=== PATIENT | female | born 1945 | race Caucasian/White ===

== ENCOUNTER 2017-05-06 21:27 | Emergency (ER) | payer MEDICARE, OTHER ==
[2017-05-06] MEDS ORDERED: NORMAL SALINE 1,000 ML IV ONE (21:50)
[2017-05-06] MEDS ORDERED: ONDANSETRON HCL/PF 2 MG/ML VIAL IV ONE (21:50)
[2017-05-06] MEDS ORDERED: ONDANSETRON HCL/PF 2 MG/ML VIAL ONE (22:06)
[2017-05-06 22:10] LABS: Hematocrit 33.6 % (37.0-47.0); Hemoglobin 11.5 gm/dL (12.5-16.0); Mean Cell Volume 94.6 fl (78-100); Mean Corpuscular Hemoglobin 32.4 pg (27-31); Mean Corpuscular Hgb Conc 34.2 g/dl (32-36); Mean Platelet Volume 9.7 fl (6.0-9.5); Platelet Count 213 K/mm3 (150-450); Red Blood Count 3.55 M/mm3 (4.2-5.4); Red Cell Distribution Width 11.9 % (11.5-14.0); White Blood Count 6.2 K/mm3 (4.0-10.5)
--- NOTE | 2017-05-06 22:10 | ERNOTE ---
<Coty Mccloud - Last Filed: 05/06/17 21:52> Medical Problem HPI - Narrative Date of Service: 05/06/17 - General Chief Complaint: Flu Symptoms Time Seen by Provider: 05/06/17 21:42 Source: patient Exam Limitations: no limitations - Immun/Allergies/Home Medications Immunizations: IMMUNIZATION HX Immunizations Up to Date Yes History of Influenza Vaccine Yes Hx Pneumococcal Vaccination Yes Allergies/Adverse Reactions: Allergies erythromycin base [Erythromycin Base] Allergy (Verified 05/07/17 00:00) oxycodone Allergy (Verified 05/07/17 00:01) Sulfa (Sulfonamide Antibiotics) Allergy (Verified 05/07/17 00:00) amlodipine Adverse Reaction (Verified 05/07/17 00:00) indomethacin Adverse Reaction (Verified 05/07/17 00:00) Home Medications: HOME MEDICATIONS Albuterol Sulfate [Ventolin HFA] 2 puff IH Q4H PRN #1 inhaler 05/03/17 [Last Taken Unknown] Carvedilol [Coreg] 12.5 mg PO BID 05/03/17 [Last Taken Unknown] Diclofenac Sodium [Diclofenac Sodium ER] 100 mg PO BID 05/03/17 [Last Taken Unknown] Fluticasone Propionate [Allergy Relief] 15.8 ml NS DAILY 05/03/17 [Last Taken Unknown] Levofloxacin [Levaquin] 750 mg PO DAILY #7 tablet 05/03/17 [Last Taken Unknown] Losartan/Hydrochlorothiazide [Losartan-Hctz 100-25 mg Tab] 1 each PO DAILY 05/03 [Last Taken Unknown] Omeprazole 40 mg PO DAILY 05/03/17 [Last Taken Unknown] Oseltamivir Phosphate [Tamiflu] 75 mg PO BID #10 cap 05/03/17 [Last Taken Unknown] traMADol HCL [Tramadol HCl] 50 mg PO PRN PRN 05/03/17 [Last Taken Unknown] Codeine Phosphate/Guaifenesin [Guiatuss AC Syrup] 5 ml PO QID PRN #30 ml [Last Taken Unknown] - History of Present History Narrative: Pt. comes in with c/o fever, cough, sinus congestion, chest congestion, malaise , fatigue, increased SOB, nausea and vomiting for 3 days. Timing: getting worse Severity: moderate Modifying Factors - (Improves): Present: other - denies Modifying Factors - (Worsens): Present: eating, movement, other - cold air Review of Systems - Review of Systems Constitutional: Present: no symptoms reported. Absent: fever, chills, weakness , fatigue, malaise EYE: Present: no symptoms reported ENT: Present: nose congestion, nasal drainage Respiratory: Present: shortness of breath, cough Cardiology: Present: no symptoms reported. Absent: chest pain, palpitations, edema Gastrointestinal/Abdominal: Present: no symptoms reported. Absent: nausea, vomiting, diarrhea, abdominal pain Genitourinary: Present: no symptoms reported. Absent: frequency, decreased urinary output Musculoskeletal: Present: no symptoms reported. Absent: back pain, joint pain Skin: Present: no symptoms reported. Absent: rash, change in hair/nails Neurological: Present: no symptoms reported. Absent: headache, dizziness/light- headedness, numbness, tingling All Other Systems: All systems neg except as marked - Patient's Past Medical History Patient History - Medical: GERD Patient History - Cardiac/Respiratory: COPD, Hypertension, Hyperlipidemia Patient History - Cancer: No Hx of Cancer Patient History - Surgical Procedures: Other Patient History - Other: None - Social History Living Situations: alone Psych History: No pertinent hx Smoking Status: Never smoker Have you smoked in the past 12 months: No Alcohol Use: none Drug Use: none - Immunizations Immunizations Up to Date: Yes Hx Pneumococcal Vaccination: Yes History of Influenza Vaccine: Yes Physical Exam - Physical Exam General Appearance: Present: wd/wn, alert, no apparent distress Head Exam: Present: normal inspection, no evidence of injury Eye Exam: Normal inspection: bilateral Ears, Nose, Throat: Present: nasal congestion, normal pharynx, dry mucous membranes. Absent: pharyngeal erythema Neck: Present: normal inspection, nontender, supple, full range of motion. Absent: lymphadenopathy (R), lymphadenopathy (L) Respiratory: Present: no respiratory distress, no accessory muscle use, chest nontender, rhonchi - RUL RLL Cardiovascular/Chest: Present: regular rate, rhythm, no murmur, normal peripheral pulses Gastrointestinal/Abdominal: Present: normal bowel sounds, nontender, nondistended, soft, no organomegaly Back Exam: Present: normal inspection Extremity Exam: Present: normal inspection Neurological Exam: Present: alert, oriented, normal mood/affect, no motor/ sensory deficits Skin Exam: Present: warm/dry, pallor. Absent: skin rash ED Progress - Vital Signs Patient's Vital Signs:: I have reviewed the patient's vital signs. Vital Signs: Vital Signs 05/06/17 21:32 Temperature 98.9 C H Pulse Rate 77 Respiratory 24 H Rate Blood Pressure 156/84 O2 Sat by Pulse 98 Oximetry - Progress/Reassessment Chief Complaint: Flu Symptoms Progress:: Unchanged - Transfer of Care Physician Sign Out: Coty Mccloud Receiving Physician: Luis Baker Pending Results: Labs, X-ray results Expected Disposition: Admit Departure Clinical Impression: Influenza A - Departure Disposition: Home Follow Up Needed Condition: Fair Instructions: Influenza, Adult, [id number] Additional Instructions: Stop the levofloxacin and continue the tamiflu (oseltamivir) until gone. Take the cough medicine for severe cough. See your primary care provider if not improving Referrals: Adele Kraus, HERBERT [Primary Care Provider] - Prescriptions: Codeine Phosphate/Guaifenesin [Guiatuss AC Syrup] 5 ml PO QID PRN #30 ml PRN Reason: Cough <Luis Baker - Last Filed: 05/07/17 03:53> Medical Problem HPI - Immun/Allergies/Home Medications Immunizations: IMMUNIZATION HX Immunizations Up to Date Yes History of Influenza Vaccine Yes Hx Pneumococcal Vaccination Yes ED Progress - Results and Orders Patient's Lab Results:: I have reviewed the patient's lab results. Results and Orders: Laboratory Tests 05/06/17 05/06/17 05/06/17 22:05 22:05 22:05 WBC 6.2 Hgb 11.5 L Hct 33.6 L Plt Count 213 ESR 24 H Sodium 137 Potassium 4.1 Chloride 100 Carbon Dioxide 25.0 BUN 22 Creatinine 1.11 Est GFR (Non-Af Amer) 51 L Random Glucose 109 Lactic Acid, Venous Calcium 8.8 Total Bilirubin 0.4 AST 87 H ALT 161 H Alkaline Phosphatase 111 Troponin I Less than 0.017 C-Reactive Prot, Quant 0.4 B-Natriuretic Peptide 111 Total Protein 7.6 Albumin 3.6 Urine Color Urine Appearance Urine pH Ur Specific [place] Urine Protein Urine Glucose (UA) Urine Ketones Urine Blood Urine Nitrate Urine Bilirubin Urine Urobilinogen Ur Leukocyte Esterase Urine RBC Urine WBC Ur Epithelial Cells Amorphous Sediment Urine Bacteria Urine Culture Comments 05/06/17 05/06/17 22:05 23:25 WBC Hgb Hct Plt Count ESR Sodium Potassium Chloride Carbon Dioxide BUN Creatinine Est GFR (Non-Af Amer) Random Glucose Lactic Acid, Venous 1.6 Calcium Total Bilirubin AST ALT Alkaline Phosphatase Troponin I C-Reactive Prot, Quant B-Natriuretic Peptide Total Protein Albumin Urine Color Yellow Urine Appearance Clear Urine pH 5.5 Ur Specific [place] 1.015 Urine Protein Negative Urine Glucose (UA) Negative Urine Ketones Negative Urine Blood Negative Urine Nitrate Negative Urine Bilirubin Negative Urine Urobilinogen Normal Ur Leukocyte Esterase Negative Urine RBC None seen Urine WBC None seen Ur Epithelial Cells 0-5 Amorphous Sediment Trace Urine Bacteria Trace Urine Culture Comments No culture indicated - Vital Signs Patient's Vital Signs:: I have reviewed the patient's vital signs. Vital Signs: Vital Signs 05/06/17 05/06/17 21:32 22:00 Temperature 98.9 C H 98.9 C H Pulse Rate 77 71 Respiratory 24 H Rate Blood Pressure 156/84 170/80 O2 Sat by Pulse 98 97 Oximetry - X-Ray X-Ray #1 X-Ray: chest Interpretation: Interp. by me X-ray Comments: No infiltrate or effusion - Progress/Reassessment Progress Note-Subjective: 05/07/17 03:39 Pt was continuing to have paroxysmal coughing spells in the ED and was given tessalon perles. Pt continued to cough and was offered robitussin with codeine. Initially pt stated that codeine made her nauseous. I attempted to find some dextromethorphan in the hospital but while the nurse coke handling supervisor and I were exploring her the patient decided to take the codeine. Pt's cough was much improved after that.
[2017-05-06 22:11] LABS: Total Cells Counted 100
[2017-05-06 22:29] LABS: ALT 161 U/L (19-67); AST 87 U/L (0-48); Albumin * 3.6 gm/dl (3.4-5.0); Alkaline Phosphatase * 111 U/L (50-170); Anion Gap 16.1 mmol/L (6.8-13.8); BNP * 111 pg/mL (5-325); BUN/Creatinine Ratio 19.8 (9.0-21.6); Bilirubin, Total 0.4 mg/dL (0.0-1.1); Blood Urea Nitrogen 22 mg/dL (3-23); CRP 0.4 mg/dL (0.0-0.9); Ca. Corrected For Albumin 8.8 mg/dL (8.4-10.2); Calcium * 8.8 mg/dL (7.9-10.9); Chloride 100 mmol/L (97-106); Glucose * 109 mg/dL (70-110); Potassium 4.1 mmol/L (3.4-4.6); Sodium 137 mmol/L (132-142); Total Protein 7.6 gm/dL (6.2-8.2); Troponin I Less than 0.017 ng/ml (0.00-0.10)
[2017-05-06 22:52] LABS: Eosinophil 3 % (0-3); Lymphocyte 17 % (20-51); Monocyte 8 % (0-9); Neutrophil 72 % (42-75); Neutrophil # 4.5 K/mm3 (1.3-6.0)
[2017-05-06 22:54] LABS: Hypochromia Trace; Ovalocytes 1+; Platelet Estimate Normal (NORMAL); RBC Morphology Normal (NORMAL)
[2017-05-06] MEDS ORDERED: BENZONATATE 100 MG CAPSULE PO ONE (23:57)
[2017-05-06 23:58] LABS: Urine Bilirubin Negative (NEGATIVE); Urine Blood Negative /ul (NEGATIVE); Urine Ketone Negative (NEGATIVE); Urine Nitrite Negative (NEGATIVE); Urine Protein Negative (NEGATIVE); Urine Specific Gravity 1.015 SP.GR. (1.005-1.010); Urine Urobilinogen Normal (NORMAL); Urine pH 5.5 pH (5.0-7.0)
[2017-05-07] MEDS ORDERED: BENZONATATE 100 MG CAPSULE PO ONE (00:02)
[2017-05-07 00:09] LABS: Urine Appearance Clear; Urine Bacteria TRACE; Urine Color Yellow; Urine RBC None Seen /hpf (0-5); Urine WBC None Seen /hpf (0-5)
[2017-05-07 00:10] LABS: Urine Amorphous Sediment TRACE (NONE-FEW)
[2017-05-07] MEDS ORDERED: CODEINE PHOSPHATE/GUAIFENESIN 5 ML UDC PO ONE ×2 (00:56→01:30)
[2017-05-07] MEDS ORDERED: CODEINE PHOSPHATE/GUAIFENESIN 5 ML UDC ONE ×2 (00:59→01:31)
[2017-05-07] MEDS ORDERED: ONDANSETRON 4 MG TAB.RAPDIS PO ONE (01:40)
[2017-05-07] MEDS ORDERED: ONDANSETRON HCL/PF 2 MG/ML VIAL ONE (01:41)
[2017-05-07] MEDS ORDERED: ONDANSETRON 4 MG TAB.RAPDIS ONE (01:42)
[2017-05-07] MEDS ORDERED: ONDANSETRON HCL/PF 2 MG/ML VIAL IV ONE (01:47)
[2017-05-07 03:34] VITALS: BP 138/74
== END 2017-05-07 02:05 | disposition home or self-care (01) ==
LOC: ER 21:27
DX: J10.1 Influenza due to other identified influenza virus with other respiratory manifestations
CPT/HCPCS: 36415; 71046; 80053; 81001; 83605; 83880; 84484; 85025; 85652; 86140; 87040; 93005; 96374; 96375; 99284; J2405

== ENCOUNTER 2019-01-16 19:28 | Observation (INO) ==
[2019-01-16 20:02] LABS: Hematocrit 29.1 % (37.0-47.0); Hemoglobin 9.7 gm/dL (12.5-16.0); Mean Cell Volume 93.3 fl (78-100); Mean Corpuscular Hemoglobin 31.1 pg (27-31); Mean Corpuscular Hgb Conc 33.3 g/dl (32-36); Mean Platelet Volume 9.2 fl (8-12.5); Neutrophil # 3.1 K/mm3 (1.3-6.0); Neutrophil % 56.8 % (42-75.0); Platelet Count 190 K/mm3 (150-450); Red Blood Count 3.12 M/mm3 (4.2-5.4); Red Cell Distribution Width 14.2 % (11.5-14.0); White Blood Count 5.4 K/mm3 (4.0-10.5)
[2019-01-16] MEDS ORDERED: ASPIRIN 81 MG TAB.CHEW PO ONE (20:05)
[2019-01-16] MEDS ORDERED: NITROGLYCERIN 0.4 MG/TAB BTL SL ONE (20:05)
[2019-01-16] MEDS ORDERED: MORPHINE SULFATE 4 MG/ML SYRG IV ONE (20:06)
[2019-01-16] MEDS ORDERED: ONDANSETRON HCL/PF 2 MG/ML VIAL IV ONE (20:06)
--- NOTE | 2019-01-16 20:07 | ERNOTE ---
Chest Pain/Cardiac HPI Date of Service: 01/16/19 Chief Complaint: Chest Pain Time Seen by Provider: 01/16/19 20:02 Source: patient Immunizations: IMMUNIZATION HX Immunizations Up to Date Yes History of Influenza Vaccine Yes Hx Pneumococcal Vaccination Yes Allergies/Adverse Reactions: Allergies benazepril Allergy (Verified 01/16/19 19:36) erythromycin base [Erythromycin Base] Allergy (Verified 01/16/19 19:36) Sulfa (Sulfonamide Antibiotics) Allergy (Verified 01/16/19 19:36) amlodipine Adverse Reaction (Verified 01/16/19 19:36) indomethacin Adverse Reaction (Verified 01/16/19 19:36) Home Medications: HOME MEDICATIONS Carvedilol [Coreg] 12.5 mg PO BID 05/03/17 [Last Taken 01/16/19 17:00] Fluticasone Propionate [Allergy Relief] 15.8 ml NS DAILY 05/03/17 [Last Taken 01/16/19 08:00] Omeprazole 40 mg PO DAILY 05/03/17 [Last Taken 01/16/19 17:00] Montelukast Sodium [Singulair] 10 mg PO DAILY 11/13/17 [Last Taken 01/16/19 21:00] oxyCODONE HCL [Oxycodone] 5 - 10 mg PO Q4H PRN 02/05/18 [Last Taken 01/16/19 21:00] Losartan/Hydrochlorothiazide [Losartan-Hctz 50-12.5 mg Tab] 1 each PO DAILY 04/09/18 [Last Taken 01/16/19 07:00] Polyethylene Glycol 3350 [Miralax] 17 gm PO DAILY PRN 04/09/18 [Last Taken Unknown] Acetaminophen 325 mg PO Q4H PRN 01/16/19 [Last Taken 01/16/19 18:00] B12/Levomefolate Calcium/B-6 [Folbic Rf Tablet] 1 ea PO DAILY 01/16/19 [Last Taken 01/16/19 08:00] Hydrocortisone Acetate 25 mg RC BID 01/16/19 [Last Taken Unknown] Lactulose [Enulose] 20 ml PO DAILY 01/16/19 [Last Taken 01/16/19 05:00] Ondansetron [Zuplenz] 4 mg PO Q8H PRN 01/16/19 [Last Taken 01/16/19 21:00] rOPINIRole HCL [Requip] 0.25 mg PO BID 01/16/19 [Last Taken 01/16/19 21:00] rOPINIRole HCL [Requip] 1 mg PO HS 01/16/19 [Last Taken 01/16/19 21:00] Narrative: This is a female who comes to the emergency department around 8:00 complaining of chest pain. The patient says the pain started at 6:00 as she was going to bed. The patient has been taking medicines which caused her to be sedated, so going to bed quite early as the norm for her. She developed a dull aching 7 out of 10 pain to the left chest. The pain radiated to the base of the neck, straight through the back to the shoulder blade, the left shoulder and down the left arm to the elbow. The pain is been constant since then. She got nausea and diaphoretic. She says she got short of breath but she thinks is because of anxiety. The patient has an aortic valve replacement with a porcine valve. Most recently redone in March. When she started to have chest pain she became very nervous that something it happened with her valve. Patient did not vomit but she is persistently nauseated. She is never had pain like this before. It occurred at rest. She has not tried anything to get it better. The pain has kind of been waxing and waning a little bit going from a 7 to a 5 and may be back up to a 6. The patient does not have any dizziness, fever, sore throat, runny nose, or other complaints. Review of Systems - Review of Systems Constitutional: Present: no symptoms reported EYE: Present: no symptoms reported ENT: Present: no symptoms reported Respiratory: Present: shortness of breath Cardiology: Present: chest pain Gastrointestinal/Abdominal: Present: nausea. Absent: vomiting Genitourinary: Present: no symptoms reported Musculoskeletal: Present: joint pain Skin: Present: no symptoms reported Neurological: Present: no symptoms reported Endocrine: Present: no symptoms reported Hematologic/Lymphatic: Present: no symptoms reported Psych: Present: no symptoms reported All Other Systems: All systems neg except as marked Medical History (Updated 01/17/19 @ 08:24 by Eitan Castaneda MD) Hiatal hernia Aortic stenosis Arthritis Hypertension Iron deficiency Restless leg syndrome Surgical History: Surgical History (Updated 01/16/19 @ 23:04 by Sidra Hays MD) H/O aortic valve replacement History of bladder suspension procedure History of left hip replacement History of sinus surgery Hx of hysterectomy Hx of straightening of nasal septum Lump of right breast hx left lung nodules removal "on outside of lung" Family History: Family History (Last Updated 01/16/19 @ 22:16 by Marybeth Louis, HOOD) Father Emphysema of lung Mother Dementia Sister Cerebral palsy Brother Enlarged heart Uncle Cancer Diabetes Aunt Diabetes Social History: (Last Updated 01/16/19 @ 19:37 by Subha Osorio, HOOD) Tobacco: Smoking Status: Former smoker how long ago did patient quit smokin Alcohol: alcohol intake: never Physical Exam - Physical Exam General Appearance: Present: wd/wn, alert, no apparent distress Head Exam: Present: normal inspection, no evidence of injury Eye Exam: Normal inspection: bilateral, PERRL: bilateral, EOMI: bilateral Ears, Nose, Throat: Present: normal ENT inspection, normal pharynx Neck: Present: normal inspection, nontender Respiratory: Present: no respiratory distress, normal breath sounds, chest nontender, lungs clear Cardiovascular/Chest: Present: regular rate, rhythm, no murmur, other - The aortic valve sound is quite crisp. No extra beats. Gastrointestinal/Abdominal: Present: normal bowel sounds, nontender, nondistended, soft Back Exam: Present: normal inspection, normal range of motion, no CVA tenderness, no vertebral tenderness Extremity Exam: Present: normal inspection, non-tender, normal range of motion, no edema Neurological Exam: Present: alert, oriented, normal mood/affect, no motor/sensory deficits Skin Exam: Present: normal color, warm/dry Lymphatic Exam: Present: no adenopathy Progress - Results and Orders Patient's Lab Results:: I have reviewed the patient's lab results. - Vital Signs Patient's Vital Signs:: I have reviewed the patient's vital signs. Vital Signs: Vital Signs 01/16/19 19:37 01/16/19 19:40 Temperature 36.8 C Pulse Rate 60 60 Respiratory Rate 19 Blood Pressure 178/77 H O2 Sat by Pulse Oximetry 96 - EKG EKG #1 EKG read: Interp. by me EKG Comments: EKG demonstrates sinus rhythm ventricular rate of 66. Normal axis. Normal intervals. No ST segment elevation. T wave inversion in V1 and V2 which can be related to lead placement. Otherwise T waves have normal morphology and direction. - X-Ray X-Ray #1 X-Ray: chest Interpretation: Interp. by me X-ray Comments: Portable chest x-ray shows borderline cardiomegaly likely due to technique, no acute cardiopulmonary disease - Progress/Reassessment Chief Complaint: Chest Pain Plan - Plan Plan: Patient received nitroglycerin and did not have any significant change in her symptoms. She did receive some morphine and that seems to have helped her shoulder a bit. She takes oxycodone every 4 hours. She says when she takes the oxycodone she also takes 1000 mg of Tylenol. Then she is been taking 6000 mg of Tylenol a day. She requested oxycodone with Tylenol but I am not comfortable giving further Tylenol. I am just going to give pain medicine at this time. Departure Clinical Impression: Chest pain Qualifiers: Chest pain type: unspecified Qualified Code(s): R07.9 - Chest pain, unspecified - Departure Disposition: Still a patient Condition: Stable
[2019-01-16 20:38] LABS: ALT 21 U/L (19-67); AST 25 U/L (0-48); Albumin * 3.6 gm/dl (3.4-5.0); Alkaline Phosphatase * 96 U/L (50-170); Anion Gap 15.6 mmol/L (6.8-13.8); BUN/Creatinine Ratio 23.1 (9.0-21.6); Bilirubin, Total 0.3 mg/dL (0.0-1.1); Blood Urea Nitrogen 27 mg/dL (3-23); Ca. Corrected For Albumin 8.8 mg/dL (8.4-10.2); Calcium * 8.8 mg/dL (7.9-10.9); Chloride 99 mmol/L (97-106); Glucose * 106 mg/dL (70-110); Potassium 4.6 mmol/L (3.4-4.6); Sodium 135 mmol/L (132-142); Total Protein 7.2 gm/dL (6.2-8.2); Troponin I Less than 0.017 ng/mL (0.00-0.10)
[2019-01-16] MEDS ORDERED: oxyCODONE HCL 5 MG TABLET PO ONE (21:12)
[2019-01-16] MEDS ORDERED: HYDROmorphone HCL 1 MG/ML DISP.SYRIN IV PRN (21:27)
[2019-01-16] MEDS ORDERED: MORPHINE SULFATE 2 MG/ML DISP.SYRIN IV PRN (22:15)
[2019-01-16] MEDS ORDERED: POLYETHYLENE GLYCOL 3350 17 GM PACKET PO PRN (22:18)
[2019-01-16] MEDS ORDERED: ONDANSETRON 4 MG TAB.RAPDIS PO PRN (22:27)
[2019-01-16] MEDS ORDERED: amLODIPine BESYLATE 10 MG TABLET PO ONE (22:41)
[2019-01-16] MEDS ORDERED: amLODIPine BESYLATE 5 MG TABLET ONE (23:03)
--- NOTE | 2019-01-16 23:05 | HP ---
Chief Complaint - Chief Complaint Date of Service: 01/16/19 Time of Service: 22:47 Chief Complaint: I had left thoracic pain that radiated down my arm and diaphoresis this evening History of Present Illness: 73-year-old female with past medical history of aortic valve replacement, hypertension, left hip replacement, aortic stenosis, restless leg syndrome, and iron deficiency anemia, was evaluated ER due to left-sided thoracic pain accompanied by diaphoresis and nausea that started this evening around 6 PM while the patient was attempting to go to bed. She reports being fine throughout the day and the days before, she had an uneventful dinner and took her routine evening medications and went to bed because she said she felt tired. However shortly after that patient started having pain 7 out of 10 intensity that he radiates down her left arm all the way down to her wrist she also said that the pain he radiates to her back and the base of her neck. She denies having this pain before and says that it concerned her so much that she started having anxiety. She said the thought of complications with her recently repaired heart valve made her anxious. Patient also developed nausea but did not vomit and became diaphoretic. She then called her family members who brought her to the ER. Medical History (Updated 04/09/18 @ 21:14 by Margarito Campbell DO) Aortic stenosis Arthritis Hypertension Iron deficiency Restless leg syndrome Surgical History: Surgical History (Updated 01/16/19 @ 19:36 by Subha Osorio RN) H/O aortic valve replacement History of bladder suspension procedure History of left hip replacement History of sinus surgery Hx of hysterectomy Hx of straightening of nasal septum Lump of right breast hx left lung nodules removal "on outside of lung" Family History: Family History (Last Updated 01/16/19 @ 22:16 by Marybeth Louis RN) Father Emphysema of lung Mother Dementia Sister Cerebral palsy Brother Enlarged heart Uncle Cancer Diabetes Aunt Diabetes Social History: (Last Updated 01/16/19 @ 19:37 by Subha Osorio RN) Tobacco: Smoking Status: Former smoker how long ago did patient quit smokin Alcohol: alcohol intake: never Peds Patient Hx - Developmental: No Pertinent Hx Peds Patient Hx - Medical: No Pertinent Hx Peds Patient Hx - Cardiac/Respiratory: No Pertinent Hx Peds Patient Hx - Surgical: No Surgical History Patient History - Cancer: No Hx of Cancer Review Of Systems (GEN) - Review of Systems Generalized/Overall Review: Present: Diaphoresis EENTM: Present: No Symptoms Reported Respiratory: Present: No Symptoms Reported Cardiac: Present: Chest Pain Abdominal: Present: Nausea Genitourinary: Present: No Symptoms Reported Musculoskeletal: Present: Other - Left-sided thoracic pain Neurological: Present: Other - Peripheral neuropathy Skin: Present: No Symptoms Reported Endocrine: Present: No Symptoms Reported Immunizations: IMMUNIZATION HX Immunizations Up to Date Yes History of Influenza Vaccine Yes Hx Pneumococcal Vaccination Yes Allergies/Adverse Reactions: Allergies Allergy/AdvReac Type Severity Reaction Status Date / Time benazepril Allergy Verified 01/16/19 19:36 erythromycin base Allergy Verified 01/16/19 19:36 [Erythromycin Base] Sulfa (Sulfonamide Allergy Verified 01/16/19 19:36 Antibiotics) amlodipine AdvReac Verified 01/16/19 19:36 indomethacin AdvReac Verified 01/16/19 19:36 Home Medications: HOME MEDICATIONS Carvedilol [Coreg] 12.5 mg PO BID 05/03/17 [Last Taken 01/16/19 17:00] Fluticasone Propionate [Allergy Relief] 15.8 ml NS DAILY 05/03/17 [Last Taken 01/16/19 08:00] Omeprazole 40 mg PO DAILY 05/03/17 [Last Taken 01/16/19 17:00] Montelukast Sodium [Singulair] 10 mg PO DAILY 11/13/17 [Last Taken 01/16/19 21:00] oxyCODONE HCL [Oxycodone] 5 - 10 mg PO Q4H PRN 02/05/18 [Last Taken 01/16/19 21:00] Losartan/Hydrochlorothiazide [Losartan-Hctz 50-12.5 mg Tab] 1 each PO DAILY 04/09/18 [Last Taken 01/16/19 07:00] Polyethylene Glycol 3350 [Miralax] 17 gm PO DAILY PRN 04/09/18 [Last Taken Unknown] Acetaminophen 325 mg PO Q4H PRN 01/16/19 [Last Taken 01/16/19 18:00] B12/Levomefolate Calcium/B-6 [Folbic Rf Tablet] 1 ea PO DAILY 01/16/19 [Last Taken 01/16/19 08:00] Hydrocortisone Acetate 25 mg RC BID 01/16/19 [Last Taken Unknown] Lactulose [Enulose] 20 ml PO DAILY 01/16/19 [Last Taken 01/16/19 05:00] Ondansetron [Zuplenz] 4 mg PO Q8H PRN 01/16/19 [Last Taken 01/16/19 21:00] rOPINIRole HCL [Requip] 0.25 mg PO BID 01/16/19 [Last Taken 01/16/19 21:00] rOPINIRole HCL [Requip] 1 mg PO HS 01/16/19 [Last Taken 01/16/19 21:00] Exam - Exam Vital Signs: Vital Signs - Last Taken Temp 36.5 C 01/16/19 22:17 Pulse 58 L 01/16/19 22:34 Resp 20 01/16/19 22:17 BP 176/48 H 01/16/19 22:17 Pulse Ox 95 01/16/19 22:17 Constitutional: Present: Alert, Oriented x3, Cooperative, Well developed, Well nourished, No distress, Obese ENT Exam: Present: normal ENT inspection, hearing grossly normal, pharynx normal, TMs normal Eye Exam: bilateral eye: normal inspection, PERRL, EOMI Neck: Present: non-tender, full range of motion, supple, normal inspection, trachea midline Back Exam: Present: normal inspection, no CVA tenderness, no vertebral tenderness Breasts: Present: Exam deferred Respiratory: Present: chest non-tender, lungs clear, normal breath sounds, no respiratory distress, no accessory muscle use Cardiovascular/Chest: Present: normal peripheral pulses, regular rate, rhythm, no edema, no gallop, no JVD, no murmur, no rub, chest tender Peripheral Pulses: carotid (R): 3+, carotid (L): 3+, femoral (R): 3+, femoral (L): 3+, dorsalis-pedis (R): 2+, dorsalis-pedis (L): 2+ Abdomen: Present: Normal bowel sounds, soft, nondistended, no rebound tenderness, no hepatospenomegaly, no masses, obese, tender - Tenderness to palpation in left upper abdomen /Rectal: Present: Exam deferred Extremity: Present: normal range of motion, non-tender, normal inspection, no pedal edema, no calf tenderness, normal capillary refill, other - Significant tenderness in both feet/toes Skin Exam: Present: normal color, warm/dry, no cyanosis Lymphatic: Present: no adenopathy Neurologic: Present: java technical architect II-XII nml as tested, normal cerebellar test, no motor/sensory deficits, alert, normal mood/affect, oriented x 3 Appearance: Present: appropriate appearance, appropriate insight, neat, no memor y impairment Eye contact: Present: cooperative, good eye contact, normal speech, avoids eye contact Thoughts: Present: normal thought pattern, no apparent hallucination Diagnostic Studies: Abnormal Lab Results 01/16/19 01/16/19 Range/Units 19:58 19:58 RBC 3.12 L (4.2-5.4) M/mm3 Hgb 9.7 L (12.5-16.0) gm/dL Hct 29.1 L (37.0-47.0) % MCH 31.1 H (27-31) pg RDW 14.2 H (11.5-14.0) % Monocytes % 10.5 H (0.0-9) % Anion Gap 15.6 H (6.8-13.8) mmol/L BUN 27 H D (3-23) mg/dL Est GFR (Non-Af Amer) 48 L (60-130) mL/min BUN/Creatinine Ratio 23.1 H (9.0-21.6) Laboratory Results WBC 5.4 K/mm3 (4.0-10.5) 01/16/19 19:58 RBC 3.12 M/mm3 (4.2-5.4) L 01/16/19 19:58 Hgb 9.7 gm/dL (12.5-16.0) L 01/16/19 19:58 Hct 29.1 % (37.0-47.0) L 01/16/19 19:58 MCV 93.3 fl (78-100) 01/16/19 19:58 MCH 31.1 pg (27-31) H 01/16/19 19:58 MCHC 33.3 g/dl (32-36) 01/16/19 19:58 RDW 14.2 % (11.5-14.0) H 01/16/19 19:58 Plt Count 190 K/mm3 (150-450) 01/16/19 19:58 MPV 9.2 fl (8-12.5) 01/16/19 19:58 Immature Gran % (Auto) 0.40 % (0.001-0.429) 01/16/19 19:58 Immature Gran # (Auto) 0.02 K/mm3 (0.000-0.0310) 01/16/19 19:58 56.8 % (42-75.0) 01/16/19 19:58 30.4 % (20-51) 01/16/19 19:58 10.5 % (0.0-9) H 01/16/19 19:58 1.3 % (0.0-3.0) 01/16/19 19:58 0.6 % (0.0-1.0) 01/16/19 19:58 Nucleated RBC % 0.0 k/mm3 (0-1) 01/16/19 19:58 3.1 K/mm3 (1.3-6.0) 01/16/19 19:58 1.65 k/mm3 (1.5-3.5) 01/16/19 19:58 0.6 k/mm3 (0.0-1.0) 01/16/19 19:58 0.1 k/mm3 (0.0-0.7) 01/16/19 19:58 Absolute Basophils 0.0 k/mm3 (0.0-0.1) 01/16/19 19:58 Sodium 135 mmol/L (132-142) 01/16/19 19:58 135 mmol/L (130-142) 01/16/19 19:58 Potassium 4.6 mmol/L (3.4-4.6) 01/16/19 19:58 Chloride 99 mmol/L (97-106) 01/16/19 19:58 Carbon Dioxide 25.0 mmol/L (24-32.6) 01/16/19 19:58 15.6 mmol/L (6.8-13.8) H 01/16/19 19:58 BUN 27 mg/dL (3-23) H D 01/16/19 19:58 1.17 mg/dL (0.4-1.4) 01/16/19 19:58 Est GFR (Non-Af Amer) 48 mL/min (60-130) L 01/16/19 19:58 23.1 (9.0-21.6) H 01/16/19 19:58 106 mg/dL (70-110) 01/16/19 19:58 Calcium 8.8 mg/dL (7.9-10.9) 01/16/19 19:58 Calcium Adj for Albumin 8.8 mg/dL (8.4-10.2) 01/16/19 19:58 0.3 mg/dL (0.0-1.1) 01/16/19 19:58 AST 25 U/L (0-48) 01/16/19 19:58 ALT 21 U/L (19-67) 01/16/19 19:58 96 U/L (50-170) 01/16/19 19:58 Less than 0.017 ng/mL (0.00-0.10) 01/16/19 19:58 7.2 gm/dL (6.2-8.2) 01/16/19 19:58 3.6 gm/dl (3.4-5.0) 01/16/19 19:58 Assessment/Plan - Narrative Narrative: Patient was evaluated and medical chart was reviewed and decision to admit for rule out of ID was made. At the moment she is resting comfortably and denies recurrence of the chest pain and initial cardiac enzymes are negative. EKG was insignificant and did not demonstrate any concerning findings. She was treated with p.o. aspirin while in the ER and antihypertensives were ordered after arriving to [facility] due to elevated blood pressure. We will continue to watch her vitals and will follow up with next cardiac enzymes and reevaluate her in the morning. - Assessment/Plan (1) Ruled out for myocardial infarction Problem: Acute (2) Chest pain Problem: Acute (3) H/O heart valve replacement with porcine valve Problem: Chronic (4) Restless leg syndrome Problem: Acute
[2019-01-17] MEDS: oxyCODONE HCL 5 MG TABLET PO PRN ×3 (02:59→12:07)
[2019-01-17] MEDS: ACETAMINOPHEN 325 MG TABLET PO PRN ×2 (04:16→11:08)
[2019-01-17] MEDS ORDERED: PANTOPRAZOLE SODIUM 40 MG TABLET.EC PO SCH ×2 (07:00→21:00)
[2019-01-17] MEDS ORDERED: LOSARTAN POTASSIUM 50 MG TABLET PO SCH (09:00)
[2019-01-17] MEDS ORDERED: ASPIRIN 81 MG TABLET.DR PO SCH (09:00)
[2019-01-17] MEDS ORDERED: [UNRECOGNIZED DRUG - OTHER] PO SCH (09:00)
[2019-01-17] MEDS ORDERED: ENOXAPARIN SODIUM 40 MG/0.4 ML SYRG SC SCH (09:00)
[2019-01-17] MEDS ORDERED: HYDROCHLOROTHIAZIDE 12.5 MG CAPSULE PO SCH (09:00)
[2019-01-17] MEDS ORDERED: LACTULOSE 10 G/15 ML SYRUP PO SCH (09:00)
[2019-01-17] MEDS ORDERED: LISINOPRIL 5 MG TABLET PO SCH (09:00)
[2019-01-17] MEDS ORDERED: rOPINIRole HCL 0.5 MG TABLET PO SCH (09:00)
[2019-01-17] MEDS ORDERED: CARVEDILOL 12.5 MG TABLET PO SCH (09:00)
[2019-01-17] MEDS ORDERED: MONTELUKAST SODIUM 10 MG TABLET PO SCH ×2 (09:00→21:00)
[2019-01-17] MEDS ORDERED: ENOXAPARIN SODIUM 60 MG, ENOXAPARIN SODIUM 30 MG SC SCH ×2 (09:00)
[2019-01-17] MEDS: NITROGLYCERIN 0.4 MG/TAB BTL SL PRN ×2 (09:04→09:10)
--- NOTE | 2019-01-17 10:10 | DS ---
Transfer Discharge Summary - Diagnosis(s)/Problems (1) Chest pain Problem: Acute (2) H/O heart valve replacement with porcine valve Problem: Chronic (3) Restless leg syndrome Problem: Acute (4) NSTEMI (non-ST elevated myocardial infarction) Problem: Acute - Course Description of Stay: 73-year-old female admitted for chest pain yesterday evening and for ruling out of SD was evaluated at bedside and was found to be afebrile and in no acute distress, however this morning the patient reported recurrence of her chest discomfort and pain that starts in her left upper thoracic region irradiating to her right shoulder this time. She also reports feeling extremely anxious and clammy. This discomfort improved with multiple doses of nitroglycerin but the patient still appears to be extremely anxious and uncomfortable. Vital signs at the moment are stable her previously elevated blood pressures have decreased with the nitroglycerin that she is been given and other antihypertensives. EKG done at bedside demonstrate nonspecific ST segment inversions in several leads, also of significance her third cardiac troponin is now positive at 0.142. Given these findings and the patient's cardiac history of a recent cardiac valve replacement done less than a year ago decision to transfer to a cardiac facility was made. We are currently faxing over all of her records and lab results and awaiting further instructions for the transfer process. In the meantime patient has been covered by the ACS protocol which include aspirin, nitroglycerin, statins, DEJAH inhibitor, and a beta-jose. We have also covered her with therapeutic levels of low molecular weight heparin. We will continue working on the transfer process. Patient's case has been presented to the on-call manager distribution and road production general manager over at [facility], they were informed on her EKG findings vitals and lab results and they agreed to accept the patient in the cardiac unit for further work-up and treatment. Everything will be sent to them and we will secure an ambulance for her transportation. Family members have been made aware of the plan. Procedures Performed: none - Results and Findings Results and Findings: Laboratory Results - last 24 hr 01/16/19 01/16/19 01/16/19 19:58 19:58 23:53 WBC 5.4 RBC 3.12 L Hgb 9.7 L Hct 29.1 L MCV 93.3 MCH 31.1 H MCHC 33.3 RDW 14.2 H Plt Count 190 MPV 9.2 Immature Gran % (Auto) 0.40 Immature Gran # (Auto) 0.02 Neutrophils % 56.8 Lymphocytes % 30.4 Monocytes % 10.5 H Eosinophils % 1.3 Basophils % 0.6 Nucleated RBC % 0.0 Neutrophils # 3.1 Lymphocytes # 1.65 Monocytes # 0.6 Eosinophils # 0.1 Absolute Basophils 0.0 Sodium 135 Plasma Sodium 135 Potassium 4.6 Chloride 99 Carbon Dioxide 25.0 Anion Gap 15.6 H BUN 27 H D Creatinine 1.17 Est GFR (Non-Af Amer) 48 L BUN/Creatinine Ratio 23.1 H Random Glucose 106 Calcium 8.8 Calcium Adj for Albumin 8.8 Total Bilirubin 0.3 AST 25 ALT 21 Alkaline Phosphatase 96 Troponin I Less than 0.017 0.023 Total Protein 7.2 Albumin 3.6 01/17/19 06:50 WBC RBC Hgb Hct MCV MCH MCHC RDW Plt Count MPV Immature Gran % (Auto) Immature Gran # (Auto) Neutrophils % Lymphocytes % Monocytes % Eosinophils % Basophils % Nucleated RBC % Neutrophils # Lymphocytes # Monocytes # Eosinophils # Absolute Basophils Sodium Plasma Sodium Potassium Chloride Carbon Dioxide Anion Gap BUN Creatinine Est GFR (Non-Af Amer) BUN/Creatinine Ratio Random Glucose Calcium Calcium Adj for Albumin Total Bilirubin AST ALT Alkaline Phosphatase Troponin I 0.142 H* Total Protein Albumin - Medications Medications: Active Medications Acetaminophen (Tylenol) 325 mg PO Q4H PRN PRN Reason: Pain Stop: 02/15/19 22:16 Last Admin: 01/17/19 04:16 Dose: 325 mg Documented by: Aspirin (Aspirin Enteric Coated) 81 mg PO DAILY [facility] Stop: 02/16/19 09:01 Last Admin: 01/17/19 09:04 Dose: 81 mg Documented by: Carvedilol (Coreg) 12.5 mg PO BID [facility] Stop: 02/16/19 09:01 Last Admin: 01/17/19 09:02 Dose: 12.5 mg Documented by: Enoxaparin Sodium 60 mg/ (Enoxaparin Sodium 30 mg) 90 mg SC BID [facility] Stop: 02/16/19 09:01 Last Admin: 01/17/19 09:05 Dose: 90 mg Documented by: Hydrochlorothiazide (Microzide) 12.5 mg PO DAILY [facility] Stop: 02/16/19 09:01 Last Admin: 01/17/19 09:05 Dose: 12.5 mg Documented by: Lisinopril (Zestril) 5 mg PO DAILY [facility] Stop: 02/16/19 09:01 Last Admin: 01/17/19 09:27 Dose: 5 mg Documented by: Losartan Potassium (Cozaar) 50 mg PO DAILY [facility] Stop: 02/16/19 09:01 Last Admin: 01/17/19 09:02 Dose: 50 mg Documented by: Nitroglycerin (Nitrostat) 0.4 mg SL Q5MIN PRN PRN Reason: CHEST PAIN Stop: 02/16/19 07:49 Last Admin: 01/17/19 09:10 Dose: 0.4 mg Documented by: Satya Rf Tablet 1 ea PO DAILY [facility] Stop: 02/16/19 09:01 Last Admin: 01/17/19 09:04 Dose: Not Given Documented by: Oxycodone HCl (Oxycodone) 5 mg PO Q4H PRN PRN Reason: Pain Stop: 02/15/19 22:16 Last Admin: 01/17/19 07:39 Dose: 5 mg Documented by: Ropinirole HCl (Requip) 0.25 mg PO 0900,1500 [facility] Stop: 02/16/19 09:01 Last Admin: 01/17/19 09:03 Dose: 0.25 mg Documented by: Discontinued Medications Amlodipine Besylate (Norvasc) 10 mg PO ONCE ONE Stop: 01/16/19 22:42 Last Admin: 01/16/19 23:06 Dose: 10 mg Documented by: Aspirin (Aspirin Chewable) 324 mg PO ONCE ONE Stop: 01/16/19 20:06 Last Admin: 01/16/19 20:26 Dose: 324 mg Documented by: Morphine Sulfate (Morphine Sulfate) 4 mg IV ONCE ONE Stop: 01/16/19 20:07 Last Admin: 01/16/19 20:28 Dose: 4 mg Documented by: Nitroglycerin (Nitrostat) 0.4 mg SL ONCE ONE Stop: 01/16/19 20:06 Last Admin: 01/16/19 20:14 Dose: 0.4 mg Documented by: Ondansetron HCl (Zofran) 4 mg IV ONCE ONE Stop: 01/16/19 20:07 Last Admin: 01/16/19 20:30 Dose: 4 mg Documented by: Oxycodone HCl (Oxycodone) 10 mg PO ONCE ONE Stop: 01/16/19 21:13 Last Admin: 01/16/19 21:21 Dose: 10 mg Documented by: Pantoprazole Sodium (Protonix) 40 mg PO DAILY@0700 [facility] Stop: 02/16/19 07:01 Last Admin: 01/17/19 08:54 Dose: Not Given Documented by: - Disposition Disposition: Short Term Hospital Inpatient Condition: Stable
[2019-01-17 14:52] VITALS: BP 168/78
[2019-01-17] MEDS ORDERED: rOPINIRole HCL 1 MG TABLET PO SCH (21:00)
[2019-01-17] MEDS ORDERED: ROSUVASTATIN CALCIUM 20 MG TABLET PO SCH (21:00)
== END 2019-01-17 15:00 | disposition short-term general hospital (02) ==
LOC: ER 19:28 → MS 19:28
PROVIDERS: ADMIT Family Medicine; ATTEND Family Medicine
CPT/HCPCS: 36415; 71010; 71045; 80053; 84484; 85025; 93005; 96372; 96374; 96375; 99285; G0378; J2405

== ENCOUNTER 2020-01-10 08:00 | Inpatient (IN) ==
--- NOTE | 2019-12-28 08:18 | ANES ---
Anesthesia Pre Procedure Eval HOME MEDICATIONS Montelukast Sodium [Singulair] 10 mg PO DAILY 11/13/17 [Last Taken 01/16/19 21:00] Acetaminophen 325 mg PO Q4H PRN 01/16/19 [Last Taken 01/16/19 18:00] rOPINIRole HCL [Requip] 0.5 mg PO HS 01/16/19 [Last Taken 01/16/19 21:00] rOPINIRole HCL [Requip] 1 mg PO HS 01/16/19 [Last Taken 01/16/19 21:00] alendronate 70 mg tablet 70 mg PO QWEEK #24 tab 10/25/19 [Last Taken Unknown] baclofen 10 mg tablet 10 mg PO TID 10/25/19 [Last Taken Unknown] calcium carbonate-vitamin D3 600 mg (1,500 mg)-800 unit tablet 1 tab PO DAILY 10/25/19 [Last Taken Unknown] carvedilol 12.5 mg tablet 25 mg PO DAILY tab 10/25/19 [Last Taken Unknown] losartan 50 mg-hydrochlorothiazide 12.5 mg tablet 2 tab PO DAILY tab 10/25/19 [Last Taken Unknown] ondansetron HCl 8 mg tablet 8 mg PO DAILY 10/25/19 [Last Taken Unknown] celecoxib 100 mg capsule 100 mg PO DAILY #60 cap 12/09/19 [Last Taken Unknown] duloxetine 60 mg capsule,delayed release 60 mg PO DAILY #30 cap 12/09/19 [Last Taken Unknown] fluticasone propionate 50 mcg/actuation nasal spray,suspension 1 spray CINDI DAILY PRN ml 12/15/19 [Last Taken Unknown] oxycodone 5 mg tablet 5 mg PO Q4H PRN #90 tab 12/16/19 [Last Taken Unknown] Allergies/Adverse Reactions: Allergies Allergy/AdvReac Type Severity Reaction Status Date / Time benazepril Allergy unknown Verified 12/15/19 14:12 erythromycin base Allergy GI symptoms Verified 12/15/19 14:12 [Erythromycin Base] indomethacin Allergy hives Verified 12/15/19 14:12 Sulfa (Sulfonamide Allergy hives Verified 12/15/19 14:12 Antibiotics) amlodipine AdvReac unknown Verified 12/15/19 14:12 - Planned Procedure Planned Procedure: Arthroplasty Total Hip Right Medication List Reviewed:: Yes Allergies Verified: Yes Medical History (Last Reviewed 12/28/19 @ 08:17 by Kamari Hopper CRNA) Peripheral neuropathy (Chronic) Aortic stenosis Arthritis DDD (degenerative disc disease) GERD (gastroesophageal reflux disease) Hiatal hernia Hypertension Iron deficiency Obesity Restless leg syndrome Surgical History (Last Reviewed 12/28/19 @ 08:17 by Kamari Hopper CRNA) H/O aortic valve replacement History of bladder suspension procedure History of sinus surgery Hx of hysterectomy Hx of straightening of nasal septum Lump of right breast hx left lung nodules removal "on outside of lung" H/O colonoscopy Onset Date: ~09/22/16 History of appendectomy History of esophagogastroduodenoscopy (EGD) Onset Date: ~01/01/18 History of left hip replacement Onset Date: ~12/10/15 Family History (Last Reviewed 12/28/19 @ 08:17 by Kamari Hopper CRNA) Father Emphysema of lung Mother Dementia Sister Cerebral palsy Brother Enlarged heart Uncle Cancer Diabetes Aunt Diabetes - Family Anesthesia History Family History:: no untoward family reactions to anesthesia, no familial bleeding tendencies, no family history of clotting disorders, no family history of premature - Airway/Neck/Teeth Denture Type: Full upper, Full lower Mallampatti Score: 2 Thyromental (T-M) distance: > 6 cm Mandibulo Hyoid distance: > 3 cm - Respiratory Smoking Status: Former smoker Discussed smoking cessation including day of surgery: No Sleep Apnea currently treated: No Sleep Apnea by current assessment: No Discussed Risks/Treatment of MAGALI: No - Cardiovascular Tolerate Activity: Fair Heart Sounds: S1 & S2, Regular - Anesthesia Assessment and Plan ASA Class: PS, III Anesthesia Type Plan: Spinal
[~2020-01-10 08:00] MED LIST: MORPHINE SULFATE 15 MG TABLET.SA PO PRN; RINGER'S SOLUTION,LACTATED 1,000 ML IV PRN; ROPIVACAINE HCL/PF 100 MG, EPINEPHrine 0.2 MG, KETOROLAC TROMETHAMINE 30 MG in NORMAL S... IJ PRN; TRANEXAMIC ACID 1,000 MG in NORMAL SALINE 100 ML IV PRN; ceFAZolin SODIUM 1 GM VIAL IV PRN
[2020-01-10] MEDS ORDERED: MIDAZOLAM HCL/PF 5 MG/ML VIAL ONE (09:38)
[2020-01-10] MEDS ORDERED: BUPIVACAINE HCL/PF 10 ML VIAL ONE (09:38)
[2020-01-10] MEDS ORDERED: PROPOFOL VIAL IV ONE (09:38)
[2020-01-10] MEDS ORDERED: NORMAL SALINE 20 ML VIAL ONE (09:39)
[2020-01-10] MEDS ORDERED: ZOLPIDEM TARTRATE 5 MG TABLET PO PRN (11:49)
[2020-01-10] MEDS ORDERED: MAGNESIUM HYDROXIDE 30 ML UDC PO PRN (11:49)
[2020-01-10] MEDS ORDERED: ONDANSETRON HCL/PF 2 MG/ML VIAL IV PRN (11:49)
[2020-01-10] MEDS ORDERED: diphenhydrAMINE HCL 50 MG/ML VIAL IV PRN (11:49)
[2020-01-10] MEDS ORDERED: MAG HYDROX/ALUMINUM HYD/SIMETH 30 ML UDC PO PRN (11:49)
[2020-01-10] MEDS ORDERED: ACETAMINOPHEN 500 MG TABLET PO PRN (11:49)
[2020-01-10] MEDS ORDERED: MORPHINE SULFATE 2 MG/ML DISP.SYRIN IV PRN (11:49)
--- NOTE | 2020-01-10 11:49 | OR ---
Operative Report - Dictated Report Narrative: Date: 01/10/2020 Preoperative diagnosis: Right hip degenerative joint disease. Postoperative diagnosis: Right hip degenerative joint disease. Procedure: Right total hip arthroplasty. Surgeon: Ruslan Bennett M.D. Customer Success Representative: Ed Ramirez PA-C (provided an essential set of skilled, educated and assisted with transfer, positioning, prepping, draping, manipulation, traction, irrigation, suturing, and placement of dressings all of which cannot be performed by the available surgical crew) Anesthesia: Spinal and local periarticular joint injection. Complications: None Specimens: Bone. Estimated blood loss: 250 milliliters. Retained implants: Depuy [place] size 6 femoral stem standard offset. Size 52 millimeter outside diameter 3-hole Frederick Gription acetabular cup. 52 millimeter outside by 36 millimeter inside diameter highly cross-linked acetabular liner. 36 millimeter diameter +5 millimeter cobalt chromium femoral head. Cancellous 6.5mm screw 35 millimeter length Indications: Mrs. Palafox is a 74-year-old female who has had longstanding right hip pain and arthrosis. This patient was followed in my clinic for period of time with significant complaints of right hip pain consistent with arthritic changes. She failed conservative measures including but not limited to activity modification, passage of time, medications, and other conservative measures. Patient wished to proceed with surgical treatment. The risks, benefits, and alternatives were discussed in clinic. The risks of , blood clots, bleeding, infection, nerve/tendon blood vessel/ injury, malposition of components, dislocation and/or instability of joint, intraoperative fracture, postoperative limited range of motion, persistent pain, failure of components, and need for additional procedures. Patient wished to proceed. Consent was obtained after answering all questions. Procedure: After marking the correct extremity on the floor, the patient was taken to the operating room. A timeout was performed. IV antibiotics consisting of Ancef were administered prior to the procedure. A spinal anesthetic was induced by anesthesia. A Montes De Oca catheter was inserted. The patient was then transitioned to a lateral position on a well-padded pegboard. An axillary roll was placed. The head was in neutral position. The non- operative down leg was well-padded with SCD and NICOLASA hose in place. The arms were supported and padded to protect from any undue pressure on the bony prominences and nerves. A well-padded anterior and posterior pelvic and chest posts were secured in order to maintain a stable position of the pelvis. This was placed so that the pelvis was perpendicular to the floor. The body was in line with the pelvis. Once it was felt that we had protected all the bony prominences and the patient was well secured with a safety belt as well, the leg was pre-scrubbed with alcohol, prepped and draped in a standard sterile fashion. A standard anterior lateral hip incision was marked out over the greater trochanter. Ioban drapes were then placed. The skin incision was then made. Sharp dissection with a scalpel utilizing cautery for hemostasis was carried out down to the gluteus and iliotibial band fascia. This was split in line with the skin incision. The greater trochanter bursa was excised. The anterior and posterior margins of the abductor tendon were identified. The anterior 1/2-1/3 of the tendon was tagged and reflected off the greater trochanter leaving a sleeve of tendon for repair at the completion of the case. This exposed the underlying hip joint capsule. A limb length stitch was placed in the skin and referencedd off a sharona on the greater trochanter for evaluation of intraoperative limb lengths. An inverted T-type capsulotomy was made extending this up to the brim of the acetabulum. Using Homans to assist with elevation of the soft tissues off the anterior, superior, and inferior aspects of the femoral neck, the hip was then placed in a figure 4 position and the femoral head was dislocated. With the leg in an externally rotated and adducted position, the cutting flag was utilized in order to sharona for a standard femoral neck cut approximately a fingerbreadth above the level of the lesser trochanter. This was done with reference to pre-operative films and overall alignment. This was done while protecting the surrounding soft tissues with Homans. The femoral head was then removed and sized for guidance on preparation of the acetabulum. It was noted that there was loss of articular cartilage on both the femoral head and weightbearing portions of the acetabulum. We then returned the leg to the table and turned our attention to the acetabulum. While protecting the surrounding soft tissues, the labrum and remaining tissue in the fovea were excised using a scalpel and cautery. A series of reamers up to size 52 millimeter were utilized to prepare the acetabulum. The final reamer had good purchase and exposed the bleeding subchondral bone. The acetabulum was then thoroughly irrigated ensuring that all bony and cartilaginous materials were removed, and the final acetabular shell was impacted into place. This was placed in approximately 45 degrees of abduction and 20 degrees of anteversion utilizing the outrigger and body axis for alignment. This had a good press fit. 1 6.5mm cancellous screw was placed in the superior posterior quadrant of the acetabulum. The shell was then thoroughly irrigated and the final polyethylene was impacted into place ensuring that it seated completely. This was then protected with a sponge while we returned our attention to the femur. With the leg in a figure 4 position, utilizing Homans for soft tissue protection, a box cutting osteotome, followed by Charnley awl, followed by serial reamers and broaches were utilized in order to prepare the femur. It was found that a size 6 broach gave good axial and rotational stability. The calcar reamer was utilized in order to clean up the cut edges. The proximal femur was visualized to ensure that there were no signs of fracture. A series of heads and necks were trialed. It was found that a standard offset neck and a + 5 femoral head gave good overall stability. There was minimal longitudinal instability. With the leg in the position of sleep, the femoral head was well covered. Hip range of motion was able to reach full extension and external rotation to greater than 75 degrees prior to impingement along the posterior acetabulum. The hip was able to be flexed to greater than 90 degrees with internal rotation greater than 60 degrees prior to anterior impingement. The limb lengths were near equal based on comparison to the contralateral side and the prior placed limb length stitch. At this point it was felt these were the appropriately sized femoral components as well as neck and femoral head. The trial implants were removed. The femur was thoroughly irrigated. The final implants were impacted into place, and the hip was reduced. After ensuring that there was no damage to the proximal femur, the standard periarticular joint injection of ropivacaine, Toradol, and epinephrine were injected into the joint capsule and surrounding soft tissues. Anesthesia then administered intravenous tranexamic acid. The capsule was repaired with a single interrupted #1 Vicryl. The abductor tendon was repaired to the greater trochanter utilizing #5 Ethibond through drill holes. This was oversewn with #1 Vicryl. The fascia was closed with interrupted #1 Vicryl and #1 strata fix barbed suture. The wounds were thoroughly irrigated as we closed in layers. The deep and subcutaneous fat layers were closed with 0 and 3-0 Vicryl respectively. The subcutaneous tissue was closed with a running 3-0 Vicryl and the skin maite. All sponge, needle, blade, and instrument counts were correct prior to closing the wounds. Sterile dressings consisting of xeroform, 4 x 4's, and tape were applied. The patient was awoken and transferred to her hospital bed and then to the postanesthesia care unit in stable condition. Postoperative condition: The plan is to admit to the medical/surgical inpatient floor postoperatively. There will be a projected 1 to 3 day hospital stay. P ostoperatively 24 hours of IV antibiotics, pain control, physical therapy, occupational therapy, and medical comanagement will be utilized. Patient will be weightbearing as tolerated with anterior hip precautions. Postoperative films will be obtained in the recovery room.
[2020-01-10] MEDS ORDERED: FLUTICASONE PROPIONATE 120 SPRAY INHALER NS PRN (11:51)
--- NOTE | 2020-01-10 12:21 | ANES ---
Post Anesthesia Discharge - Transfer of Care Transfer of Care handoff given to nurse: Yes - Discharge from PACU Discharge from PACU when meets criteria: Yes
--- NOTE | 2020-01-10 12:22 | ANES ---
Post Anesthesia Assessment - Vital Signs Vitals: Last Vital Signs Temp 36.2 C 01/10/20 12:00 Pulse 54 L 01/10/20 12:05 Resp 14 01/10/20 12:05 BP 148/59 01/10/20 12:05 Pulse Ox 92 L 01/10/20 12:05 Airway Patency: Normal - Mental Status Level Of Consciousness: Awake - Pain Level Pain Score: 0 - N/V Assessment Nausea/Vomiting Presence: None Dehydration:: No
[2020-01-10] MEDS: ceFAZolin SODIUM 1 GM in DEXTROSE 5 % IN WATER 100 ML IV SCH ×4 (13:12→20:02)
[2020-01-10] MEDS: DEXTROSE 5%-LACTATED RINGERS 1,000 ML IV PRN ×2 (13:12→22:07)
[2020-01-10] MEDS: KETOROLAC TROMETHAMINE 15 MG/ML VIAL IV SCH ×2 (13:12→18:51)
[2020-01-10] MEDS: oxyCODONE HCL/ACETAMINOPHEN 1 TAB TABLET PO PRN ×3 (13:42→23:02)
[2020-01-10] MEDS ORDERED: CLONIDINE HCL 0.1 MG TABLET PO ONE (14:07)
[2020-01-10] MEDS ORDERED: SENNOSIDES/DOCUSATE SODIUM 1 TAB TABLET PO SCH (21:00)
[2020-01-10] MEDS ORDERED: rOPINIRole HCL 0.5 MG TABLET PO SCH (21:00)
[2020-01-10] MEDS ORDERED: rOPINIRole HCL 1 MG TABLET PO SCH (21:00)
[2020-01-11] MEDS: KETOROLAC TROMETHAMINE 15 MG/ML VIAL IV SCH ×4 (01:01→18:12)
[2020-01-11] MEDS: ceFAZolin SODIUM 1 GM in DEXTROSE 5 % IN WATER 100 ML IV SCH ×2 (01:11)
[2020-01-11] MEDS: oxyCODONE HCL/ACETAMINOPHEN 1 TAB TABLET PO PRN ×4 (05:04→19:49)
[2020-01-11 06:33] LABS: Hematocrit 26.3 % (37.0-47.0); Hemoglobin 8.5 gm/dL (12.5-16.0); Mean Cell Volume 98.9 fl (78-100); Mean Corpuscular Hgb Conc 32.3 g/dl (32-36); Mean Platelet Volume 9.4 fl (8-12.5); Platelet Count 130 K/mm3 (150-450); Red Blood Count 2.66 M/mm3 (4.2-5.4); Red Cell Distribution Width 12.1 % (11.5-14.0); White Blood Count 4.8 K/mm3 (4.0-10.5)
[2020-01-11 06:36] LABS: Anion Gap 8.8 mmol/L (6.8-13.8); BUN/Creatinine Ratio 20.4 (9.0-21.6); Calcium * 8.1 mg/dL (7.9-10.9); Carbon Dioxide 27.4 mmol/L (24-32.6); Estimated Creat Clear 43.9; Potassium 4.2 mmol/L (3.4-4.6)
[2020-01-11] MEDS ORDERED: HYDROCHLOROTHIAZIDE PO SCH (09:00)
[2020-01-11] MEDS ORDERED: [UNRECOGNIZED DRUG - OTHER] PO SCH (09:00)
[2020-01-11] MEDS ORDERED: LOSARTAN PO SCH (09:00)
[2020-01-11] MEDS: LOSARTAN POTASSIUM 50 MG TABLET PO SCH (09:17)
[2020-01-11] MEDS: HYDROCHLOROTHIAZIDE 25 MG TABLET PO SCH (09:17)
[2020-01-11] MEDS: MONTELUKAST SODIUM 10 MG TABLET PO SCH (09:17)
[2020-01-11] MEDS: ONDANSETRON HCL 8 MG TABLET PO SCH ×2 (09:17→09:26)
[2020-01-11] MEDS: DULoxetine HCL 20 MG CAPSULE.SA PO SCH (09:18)
[2020-01-11] MEDS: CALCIUM CARBONATE/VITAMIN D3 1 TAB TABLET PO SCH (09:18)
[2020-01-11] MEDS: CARVEDILOL 25 MG TABLET PO SCH (09:18)
[2020-01-11] MEDS ORDERED: MORPHINE SULFATE 15 MG TABLET.SA PO SCH (11:30)
[2020-01-11] MEDS: ENOXAPARIN SODIUM 40 MG/0.4 ML SYRG SC SCH (12:03)
--- NOTE | 2020-01-11 16:24 | PN ---
Subjective - Date and Time Seen Date: 01/11/20 Time: 07:50 Subjective Narrative: 4-year-old female postop day 1 status post right total hip arthroplasty. She notes she is doing well overall, she still is working towards improvement in weightbearing ambulation including stairs. Note patient says she has multiple stairs to get into her house. She notes her pain is well controlled at this time however she notes getting to bed last night she did have one acute episode that was significant. She denies any other significant nausea, no other acute concerns currently. She does note she has been able to ambulate down the chen with minimal pain. Objective - Vitals Vitals: Last Vital Signs Temp 36.3 C 01/11/20 14:17 Pulse 69 01/11/20 14:17 Resp 20 01/11/20 14:17 BP 131/41 01/11/20 14:17 Pulse Ox 95 01/11/20 14:17 - Abnormal Lab Findings Abnormal Lab Findings: Abnormal Lab Results 01/11/20 01/11/20 Range/Units 06:23 06:23 RBC 2.66 L (4.2-5.4) M/mm3 Hgb 8.5 L (12.5-16.0) gm/dL Hct 26.3 L (37.0-47.0) % MCH 32.0 H (27-31) pg Plt Count 130 L (150-450) K/mm3 Est GFR (Non-Af Amer) 59 L (60-130) mL/min - Exam Constitutional: Present: Alert, Cooperative, No distress Respiratory: Present: no respiratory distress Extremity: Present: other - Right lower extremity--> sensation tact light touch, 4+/5 knee flexion extension, bandages clean/dry/intact, capillary refill brisk, diffuse mild tenderness about right hip Skin Exam: Present: normal color, warm/dry Appearance: Present: appropriate appearance Eye contact: Present: cooperative, good eye contact Thoughts: Present: normal thought pattern Cauti Physician Documentation - Urinary Catheter Management Urethral (Montes De Oca) Date of Insertion: 01/10/20 Time of Insertion: 10:40 Date of Removal: 01/11/20 Time of Removal: 05:14 Assessment/Plan Plan Narrative: -74-year-old female postop day 1 status post right total hip arthroplasty -Weightbearing as tolerated, assistive device PRN, anterior precautions -PT/OT progress as tolerated per protocol -P.o. diet as tolerated -P.o. pain medication PRN -DVT prophylaxis Lovenox, SCDs in bed, NICOLASA won knee-high -Maintain postoperative dressing in place, change PRN monitor for signs of drainage -Disposition: Plan to discharge home with outpatient physical therapy, patient still needs to meet goal passing stairs has multiple steps to proceed into her home we will continue to monitor her PT/OT progress, continue pain control, goal for discharge tomorrow - Problems/Diagnosis (1) Status post total hip replacement, right Problem: Acute
[2020-01-11] MEDS: FERROUS SULFATE 325 MG TABLET PO SCH (16:54)
[2020-01-11] MEDS ORDERED: rOPINIRole HCL 0.5 MG TABLET PO SCH (17:00)
[2020-01-11] MEDS ORDERED: rOPINIRole HCL 1 MG TABLET PO SCH ×2 (17:00)
[2020-01-11] MEDS ORDERED: ONDANSETRON HCL 8 MG TABLET PO SCH (17:15)
[2020-01-11] MEDS: SENNOSIDES/DOCUSATE SODIUM 1 TAB TABLET PO SCH (20:10)
[2020-01-11] MEDS: MORPHINE SULFATE 15 MG TABLET.SA PO SCH (20:10)
[2020-01-12] MEDS: oxyCODONE HCL/ACETAMINOPHEN 1 TAB TABLET PO PRN ×3 (00:06→13:22)
[2020-01-12] MEDS: KETOROLAC TROMETHAMINE 15 MG/ML VIAL IV SCH ×2 (00:13→06:44)
[2020-01-12] MEDS ORDERED: rOPINIRole HCL 0.5 MG TABLET PO SCH (01:00)
[2020-01-12] MEDS: CARVEDILOL 25 MG TABLET PO SCH (08:10)
[2020-01-12] MEDS: CALCIUM CARBONATE/VITAMIN D3 1 TAB TABLET PO SCH (08:10)
[2020-01-12] MEDS: DULoxetine HCL 20 MG CAPSULE.SA PO SCH (08:11)
[2020-01-12] MEDS: LOSARTAN POTASSIUM 50 MG TABLET PO SCH (08:11)
[2020-01-12] MEDS: MONTELUKAST SODIUM 10 MG TABLET PO SCH (08:11)
[2020-01-12] MEDS: HYDROCHLOROTHIAZIDE 25 MG TABLET PO SCH (08:11)
[2020-01-12] MEDS: SENNOSIDES/DOCUSATE SODIUM 1 TAB TABLET PO SCH (08:17)
[2020-01-12] MEDS: MORPHINE SULFATE 15 MG TABLET.SA PO SCH (08:18)
[2020-01-12] MEDS: FERROUS SULFATE 325 MG TABLET PO SCH (08:30)
[2020-01-12] MEDS: ENOXAPARIN SODIUM 40 MG/0.4 ML SYRG SC SCH (10:04)
--- NOTE | 2020-01-12 12:29 | DS ---
(1) Degenerative disc disease Problem: Chronic (2) GERD (gastroesophageal reflux disease) Problem: Chronic (3) Hypertension Problem: Chronic (4) Acute on chronic anemia Problem: Acute (5) Iron deficiency anemia Problem: Chronic (6) Obesity Problem: Chronic Qualifiers: Obesity classification: adult class 1 (BMI 30 - 34.9) Body mass index: BMI 32.0-32.9 (7) Aortic stenosis Problem: Chronic (8) Hiatal hernia Problem: Chronic (9) Status post total hip replacement, right Problem: Acute (10) Restless leg syndrome Problem: Chronic (11) H/O heart valve replacement with porcine valve Problem: Chronic (12) Peripheral neuropathy Problem: Chronic Qualifiers: Peripheral neuropathy type: polyneuropathy associated with underlying disease Qualified Code(s): G63 - Polyneuropathy in diseases classified elsewhere Date of Discharge:: 01/12/20 Hospital Course: Mrs. Palafox was admitted to the floor after undergoing right total hip arthroplasty. Tolerated this well. Was admitted to the floor postoperatively for 24 hours of IV antibiotics, pain control, medical comanagement, and occupational and physical therapy. OT and PT were consulted to assist with activities of daily living and ambulation. Was made weightbearing as tolerated with range of motion as tolerated. Pain was initially controlled with IV regimen. This was transitioned to oral once tolerating a by mouth intake. Was resumed on home diet and medications. A Montes De Oca catheter was inserted in the operating room which was discontinued by postoperative day 1. Lovenox, SCDs, and NICOLASA hose were utilized for DVT prophylaxis. Vital signs remained stable to the hospital course. Labs were obtained which showed a final hemoglobin of 8.5 grams. She was asymptomic and thus the anemia will be monitored and treated clinically. BMP was reviewed and was stable. Physical examination throughout the hospital course showed an extremity that had sensation that was intact to light touch, palpable pulses, a benign wound, motor intact to the toes, ankle, and knee. Once an oral pain regimen was tolerated and physical therapy goals were met, it was felt that they were stable for discharge to home. She is going to have home health for physical therapy and nursing. She is homebound and thus unable to travel. The need for this care is directly related to this hospitalization. It is unsafe for her to travel due to the inability to drive at this time secondary to surgery as well as the difficulty leaving the home secondary to her limited mobility. She needs assistance with activities of daily living, wound monitoring, management of medical conditions, and progression of ambulation safely. Instructions: Continue with weightbearing as tolerated and range of motion as tolerated. Keep the wound covered. Do not bathe or soak the wound. If there is any drainage from the wound keep the wound clean and dry and cover with dry gauze and tape. Change every 2-3 days as needed if there is any drainage. Cover wound while showering. Continue with physical therapy. Resume home diet. Report any fever over 101.5 Fahrenheit, uncontrolled pain, increased drainage, foul odor of drainage, new or increased calf pain or shortness of breath, or any other significant complaints. A 325mg daily aspirin will be started after finishing anticoagulation if not allergic. Continue with NICOLASA hose on the operative extremity until instructed otherwise. No driving until instructed otherwise. Follow up in approximately 2-3 weeks. Procedures Performed: see notes below List Procedures: Right total hip arthroplasty Results and Findings: Lab Pending Results 01/11/20 06:23: WBC 4.8, RBC 2.66 L, Hgb 8.5 L, Hct 26.3 L, MCV 98.9, MCH 32.0 H, MCHC 32.3, RDW 12.1, Plt Count 130 L, MPV 9.4 01/11/20 06:23: Sodium 133, Plasma Sodium 133, Potassium 4.2, Chloride 101, Carbon Dioxide 27.4, Anion Gap 8.8, BUN 20, Creatinine 0.98, Est GFR (Non-Af Amer) 59 L, BUN/Creatinine Ratio 20.4, Random Glucose 110, Calcium 8.1 Discharge Location: Home Disposition: Home Health Service Condition: Good Discharge Activity: Weight bearing, Other - Anterior hip precautions Discharge Diet: General/regular food Referrals: Sidra Hays MD [Primary Care Provider] - Additional Patient Instructions (free text): [facility] new at discharge- fax orders, medication list, and call report. Prescriptions (Any new or edited meds): Ferrous Sulfate 325 mg PO BIDWM #60 tab Transmission Status: Pending to [facility] Enoxaparin Sodium [Lovenox] 40 mg SC Q24H #7 disp.syrin Transmission Status: Pending to [facility] Morphine Sulfate [Ms Contin] 15 mg PO Q12H #10 tablet.sa Transmission Status: Sent to [facility] oxyCODONE HCL/ACETAMINOPHEN [Percocet 5 MG/325 MG] 2 tab PO Q4H PRN #60 tab PRN Reason: Moderate Pain (Pain Scale 4-6) Transmission Status: Sent to [facility] Sennosides/Docusate Sodium [Senokot-S] 2 tab PO BID #120 tab Transmission Status: Pending to [facility] Complete Home Medications List: Complete Home Medication List: Montelukast Sodium [Singulair] 10 mg PO DAILY 11/13/17 rOPINIRole HCL [Requip] 0.5 mg PO HS 01/16/19 rOPINIRole HCL [Requip] 1 mg PO HS 01/16/19 alendronate 70 mg tablet 70 mg PO QWEEK #24 tab 10/25/19 calcium carbonate-vitamin D3 600 mg (1,500 mg)-800 unit tablet 1 tab PO DAILY 10/25/19 carvedilol 12.5 mg tablet 25 mg PO DAILY tab 10/25/19 losartan 50 mg-hydrochlorothiazide 12.5 mg tablet 2 tab PO DAILY tab 10/25/19 ondansetron HCl 8 mg tablet 8 mg PO DAILY 10/25/19 duloxetine 60 mg capsule,delayed release 60 mg PO DAILY #30 cap 12/09/19 fluticasone propionate 50 mcg/actuation nasal spray,suspension 1 spray CINDI DAILY PRN ml 12/15/19 Enoxaparin Sodium [Lovenox] 40 mg SC Q24H #7 disp.syrin 01/12/20 Ferrous Sulfate 325 mg PO BIDWM #60 tab 01/12/20 Morphine Sulfate [Ms Contin] 15 mg PO Q12H #10 tablet.sa 01/12/20 Sennosides/Docusate Sodium [Senokot-S] 2 tab PO BID #120 tab 01/12/20 oxyCODONE HCL/ACETAMINOPHEN [Percocet 5 MG/325 MG] 2 tab PO Q4H PRN #60 tab 01/12/20
[2020-01-12 15:46] VITALS: BP 138/57
== END 2020-01-12 15:46 | disposition home health service (06) | DRG 470 ==
LOC: MS 08:26 → EDSTATUS 10:30
PROVIDERS: ADMIT Orthopaedic Surgery; ATTEND Orthopaedic Surgery
DX: E66.9 Obesity, unspecified; I10 Essential (primary) hypertension; I35.0 Nonrheumatic aortic (valve) stenosis; G25.81 Restless legs syndrome; Z95.4 Presence of other heart-valve replacement; K21.9 Gastro-esophageal reflux disease without esophagitis; G63 Polyneuropathy in diseases classified elsewhere; M16.11 Unilateral primary osteoarthritis, right hip; Z68.32 Body mass index [BMI] 32.0-32.9, adult; D62 Acute posthemorrhagic anemia; D50.9 Iron deficiency anemia, unspecified